=== PATIENT | female | born 1980 | race Caucasian/White ===

== ENCOUNTER 2017-03-31 11:42 | Inpatient (IN) | payer BC ==
[2017-03-31] MEDS ORDERED: BUTORPHANOL TARTRATE 1 MG/ML VIAL IVPB ONE (12:15)
[2017-03-31] MEDS ORDERED: PROMETHAZINE HCL 25 MG/1 ML VIAL IVPB ONE (12:15)
[2017-03-31 12:25] LABS: BASOPHIL 0.3 % (0-2.0); EOSINOPHIL 0.3 % (0-4.5); MCH 28.7 pg (25.7-33.7); MCHC 33.6 g/dl (32.0-36.0); MEAN CELL VOLUME 85.4 fl (80-96); MEAN PLT VOLUME 9.8 fl (7.5-11.1); NEUTROPHILS 76.6 % (42.8-82.8); PLATELET COUNT 145 K/MM3 (134-434); RDW 13.5 % (11.6-15.6); WHITE BLOOD COUNT 9.1 K/mm3 (4.0-10.0)
[2017-03-31 12:31] VITALS: BMI 26.6
[2017-03-31 12:38] LABS: ANION GAP 10 (8-16); CO2 26 mmol/L (21-32); CREATININE 0.7 mg/dL (0.55-1.02); GLUCOSE,RANDOM 82 mg/dL (74-106)
[2017-03-31 13:02] LABS: INR 0.96 (0.82-1.09); PROTHROMBIN TIME (PATIENT) 10.6 SEC (9.98-11.88)
[2017-03-31 13:05] LABS: ACTIVATED PTT 26.8 SECONDS (26.9-34.4)
[2017-03-31] MEDS ORDERED: DEXTROSE 5%-LACTATED RINGERS 1,000 ML IV SCH (14:15)
--- NOTE | 2017-03-31 14:18 | HP ---
Past Medical History - Primary Care Physician PCP:: Art Gibbs - Admission Chief Complaint: 36yo P1 at EGA 40w4d admitted with spontaneous labor. History of Present Illness: AMA GBS neg Recent US c/w polyhydramnios and BPP 04/10 History Source: Patient, Medical Record Limitations to Obtaining History: No Limitations - Past Medical History EXPERIENCE SPECIALIST: No: Alzheimer's, CVA, Dementia, Migraine, Multiple Sclerosis, Peripheral Neuropathy, Parkinson's, Seizure, Syncope, TIA, Vertigo, Other Cardiovascular: No: AFIB, Aneurysm, Aortic Insufficiency, Aortic Stenosis, CAD, CHF, Deep Vein Thrombosis, HTN, Hyperlipdemia, PA, Mitral Insufficiency, Mitral Stenosis, Murmur, Pulmonary Hypertension, Other Pulmonary: No: Asthma, Bronchitis, Cancer, COPD, O2 Dependent, Pneumonia, Previously Intubated, Pulmonary Embolus, Pulmonary Fibrosis, Sleep Apnea, Other Gastrointestinal: No: Ascites, Cancer, Constipation, Crohn's Disease, Diverticulitis, Diverticulosis, Esophageal Varices, Gastritis, GERD, GI Bleed, Hemorrhoids, Hiatal Hernia, Inflamatory Bowel Disease, Irritable Bowel Disease, Pancreatitis, Peptic Ulcer Disease, Ulcerative Colitis, Other Hepatobiliary: No: Cirrhosis, Cholelithiasis, Cholecystitis, Choledocholithiasis , Hepatitis A, Hepatitis B, Hepatitis C, Other Renal/: No: Renal Failure, Renal Inusuff, BPH, Cancer, Hematuria, Hemodialysis , Neurogenic Bladder, Renal Calculi, UTI, Other Reproductive: No: Ectopic , Endometriosis, Fibroids, PID, Polycystic Ovary Syndrome, Postmenopausal, Other ...: 2 ...Para: 1 () ...Term: 1 ...EDC by Brittani: 03/27/17 Heme/Onc: No: Anemia, B12 Deficiency, Bleeding Disorder, Cancer, Current Chemotherapy, Current Radiation Therapy, Hemochromatosis, Hypercoaguable State, Myeloproliferative Synd, Sickle Cell Disease, Sickle Cell Trait, Thrombocytopenia, Other Infectious Disease: No: AIDS, C-Diff, Herpes Zoster, HIV, MRSA, STD's, Tuberculosis, VREF, Other Psych: No: Addictions, Anxiety, Bipolar, Depression, Panic, Psychosis, Schizophrenia, Other Musculoskeletal: No: Bursitis, Chronic low back pain, Hemiparesis, Hemiplegia, Osteoarthritis, Paraplegia, Other Rheumatology: No: Fibromyalgia, Gout, Lupus, Rheumatoid Arthritis, Sarcoidosis, Vasculitis, Other ENT: No: Allergic Rhinitis, Sinusitis, Other Endocrine: No: Ward's Disease, Trina's Disease, Diabetes Insipidus, Diabetes Mellitus, Hyperparathyroidism, Hyperthyroidism, Hypothyroidism, Osteopenia, SIADH, Other Dermatology: No: Basal Cell, Cellulitis, Eczema, Melanoma, Psoriasis, Squamous Cell, Other - Past Surgical History Past Surgical History: Yes: None Hx Myomectomy: No Hx Transabdominal Cerclage: No - Smoking History Smoking history: Never smoked Have you smoked in the past 12 months: No - Alcohol/Substance Use Hx Alcohol Use: No History of Substance Use: reports: None - Social History Usual Living Arrangement: Yes: With Spouse, With Child ADL: Independent Occupation: Homemaker History of Recent Travel: No Home Medications - Allergies Allergies/Adverse Reactions: Allergies Allergy/AdvReac Type Severity Reaction Status Date / Time No Known Allergies Allergy Verified 04/12/14 00:05 - Home Medications Home Medications: Ambulatory Orders RX: Vitamins (Sjr) - 1 tab PO DAILY MDD 1 04/11/14 Family Disease History - Family Disease History Family Disease History: Other: Mother (osteoporosis) Review of Systems - Review of Systems Constitutional: reports: Other (labor) Eyes: reports: No Symptoms HENT: reports: No Symptoms Neck: reports: No Symptoms Cardiovascular: reports: No Symptoms Respiratory: reports: No Symptoms Gastrointestinal: reports: No Symptoms Genitourinary: reports: No Symptoms Breasts: reports: No Symptoms Reported Musculoskeletal: reports: No Symptoms Integumentary: reports: No Symptoms Neurological: reports: No Symptoms Endocrine: reports: No Symptoms Hematology/Lymphatic: reports: No Symptoms Psychiatric: reports: No Symptoms Pain Intensity: 8 Physical Exam - Maternity Vital Signs: Vital Signs Temperature 99.1 F 03/31/17 14:00 Pulse Rate 68 03/31/17 14:00 Respiratory Rate 20 03/31/17 14:00 Blood Pressure 113/78 03/31/17 14:00 O2 Sat by Pulse Oximetry (%) Constitutional: Yes: Well Nourished, No Distress, Calm Eyes: Yes: WNL, Conjunctiva Clear HENT: Yes: WNL, Atraumatic, Normocephalic Neck: Yes: WNL, Supple, Trachea Midline Cardiovascular: Yes: WNL, Regular Rate and Rhythm Lungs: Clear to auscultation, Normal air movement Breast(s): Yes: WNL - Abdominal Exam/OB Fundal Height: 40 Number of Fetuses: Single Presentation: Vertex Contractions: Yes Regularity: Regular (q2min) Intensity: Moderate Monitor Mode: External Heart Rate (range): 130 Heart Rate Location: Midline Category: I (Now s/p Stadol and Phenergan) Accelerations: None (Now s/p Stadol and Phenergan) Decelerations: None - Vaginal Exam/OB Vaginal Bleediing: No Speculum Exam: No Dilatation (cm): 7 Effacement (%): 70 Amniotic Membrane Status: Intact Presentation: Vertex/Position Station: -1 - Physical Exam Musculoskeletal: Yes: WNL Extremities: Yes: WNL Edema: No Edema: LLE: Trace, RLE: Trace Integumentary: Yes: WNL Deep Tendon Reflex Grade: Normal +2 ...Motor Strength: WNL Psychiatric: Yes: WNL, Alert, Oriented - Labs Lab Results: CBC, BMP 03/31/17 11:55 03/31/17 11:55 Hemorrhage Risk Assessment - Risk Factors Medium Risk Factors: Yes: None High Risk Factors: Yes: None Risk Score: 1 Risk Level: Medium Risk Imaging - Results Ultrasound: Report Reviewed Assessment/Plan 36yo P1 with at EGA 40w4d admitted with active spontaneous labor. The fetus with Category I tracing and requires no intervention. Labor is in active phase. Plan to monitor labor progress. Anticipate .
--- NOTE | 2017-03-31 16:17 | PN ---
Ante-Partal Exam - Subjective Subjective: Pt is pushing on and off, and has a lot of back labor/pain. She is also resting w/o pushing. She was laboring in standing position w/o pushing, as well. Multiple losses of contact on the tracing noted. Vital Signs: Vital Signs Temperature 99.1 F 03/31/17 14:00 Pulse Rate 68 03/31/17 15:00 Respiratory Rate 20 03/31/17 15:00 Blood Pressure 120/76 03/31/17 15:00 O2 Sat by Pulse Oximetry (%) Bleeding: No Headache: No Visual changes: No Right upper quadrant pain: No Pain (scale 1-10): 10 - Contractions Contractions: Yes Regularity: Regular (pontaneous, q 2min) Intensity: Mod/Strong Monitor Mode: External - Exam during Labor Heart Rate: 140 Variability: Moderate Heart Rate Location: Midline Category: II Monitor Accelerations: Absent (moderate variability) Monitor Decelerations: Variable Exam: Vaginal Dilatation (cm): 10 Effacement (%): 100 Amniotic Membrane Status: Ruptured Amniotic Fluid: Clear Presentation: Vertex Station: +2 Remarks: Pushing since ~3:35pm, adequate gynecoid pelvimetry. The fetus in OP presentation - Intrapartum Hemorrhage Risk Medium Risk Factors: None High Risk Factors: None Risk Score: 0 Risk Level: Low Risk - Assessment/Plan Assessment/Plan: 36yo P1 with second stage of labor. Pt is c/o "back labor" and fetus is in OP presentation. The pt is trying various labor positions and also rests w/o pushing due to discomfort. Fetus does not require intervention at this time. Plan to allow pt to labor and any position with the most comfort. Anticipate .
[2017-03-31] MEDS: D5W-LR W/ 20 UNITS OXYTOCIN 1,000 ML IV SCH (17:25)
[2017-03-31 17:44] LABS: ARTERIAL BLD GAS O2 SATURATION 58.2 % (90-98.9); ARTERIAL BLOOD GAS BASE EXCESS -1.2 meq/l (-2-2); ARTERIAL BLOOD GAS PO2 27.9 mmHg (80-100)
[2017-03-31 17:46] LABS: ARTERIAL BLD GAS O2 SATURATION 63.8 % (90-98.9); ARTERIAL BLOOD GAS HCO3 23.4 meq/L (22-26); ARTERIAL BLOOD GAS PO2 29.6 mmHg (80-100); ARTERIAL BLOOD GAS pH 7.31 (7.35-7.45); PT. ON O2? NO
[2017-03-31 17:47] LABS: ARTERIAL BLOOD GAS pH 7.34 (7.35-7.45); PT. ON O2? NO
[2017-03-31] MEDS ORDERED: TUBERCULIN PPD 5 TU/0.1ML SYRINGE (IN PATIENT USE ONLY) ID ONE (18:00)
--- NOTE | 2017-03-31 18:01 | PROC ---
Obstetrical Vaccum Device - Doc. Following Use of Vaccum Device Indications for use: NRFHR, Maternal Exhaustion, Failure to Descend Risks and Benefits Explained: Yes Consent on Chart: Yes Dilation (0-10): 10 Station: 2 Molding: No Position: OA Caput: Yes Proper placement of cup confirmed: Yes Number of pulls: 2 Number of pop-offs: 0 Duration of time cup on head (min): 0 (30 seconds) Maximum pressure attained: 45 (cm Hg) Total time cup near/at maximum pressure (min): 0 (30 seconds) Reduction of pressure between contractions: Yes Outcome: Excellent delivery Appearance of head on delivery: [place] Risk Management Manager present during vacuum extraction: Yes Risk Management Manager & nursery staff notified of vacuum extraction: Yes
[2017-03-31] MEDS ORDERED: BENZOCAINE 28 GM HEMORRHOIDAL OINTMENT TP PRN (18:05)
[2017-03-31] MEDS ORDERED: BENZOCAINE 20% 57 GM BOTTLE TP PRN (18:05)
[2017-03-31] MEDS ORDERED: WITCH HAZEL 50% (TUCKS) 40 PAD/JAR PAD TP PRN (18:05)
[2017-03-31] MEDS ORDERED: BISACODYL 10 MG SUPP.RECT RC PRN (18:05)
[2017-03-31] MEDS ORDERED: METHYLERGONOVINE MALEATE 0.2 MG/1 ML AMP IM PRN (18:05)
--- NOTE | 2017-03-31 18:16 | PN ---
Delivery - Delivery Vaginal Delivery: No Problems, Vacuum Assist Type of Anesthesia: Local Episiotomy/Laceration: Midline (laceration), Left Mediolateral (laceration), Right Mediolateral (laceration), 2nd degree (laceration) EBL (cc): 300 Delivery, Single - Stages of Labor Date 1st Stage Initiatied: 03/31/17 Time 1st Stage Initiated: 06:00 Date 2nd Stage Initiated: 03/31/17 Time 2nd Stage Initiated: 15:35 Date of Delivery: 03/31/17 Time of Delivery: 17:20 Date Placenta Delivered: 03/31/17 Time Placenta Delivered: 17:25 Placenta: Yes: Spontaneous, Normal Configuration - Condition of Infant Ink Technician/Advertising Display Rotator Present: Yes Name: Eliot Richmond Gender: Male Weight: 3.572 kg Position: Right, OA Total Hours ROM (Hrs/Mins): 2/45 - 1 Minute Total Score: 9 5 Minutes Total Score: 9 - [place] Feeding Plan Initial Plan: Elected not to breastfeed exclusively throughout hospitalization Benefits of Exclusively reinforced: Yes
[2017-03-31] MEDS: ACETAMINOPHEN 325 MG TABLET (FP) PO PRN ×2 (20:00→23:20)
[2017-03-31] MEDS: IBUPROFEN 600 MG TABLET (FP) PO PRN ×2 (20:00→23:20)
[2017-04-01] MEDS: D5W-LR W/ 20 UNITS OXYTOCIN 1,000 ML IV SCH (01:55)
[2017-04-01 08:55] LABS: BASOPHIL 0.2 % (0-2.0); EOSINOPHIL 0.1 % (0-4.5); MCH 28.6 pg (25.7-33.7); MCHC 33.2 g/dl (32.0-36.0); MEAN CELL VOLUME 86.1 fl (80-96); MEAN PLT VOLUME 9.6 fl (7.5-11.1); NEUTROPHILS 81.8 % (42.8-82.8); PLATELET COUNT 142 K/MM3 (134-434); RDW 13.5 % (11.6-15.6); WHITE BLOOD COUNT 12.1 K/mm3 (4.0-10.0)
[2017-04-01] MEDS: PRENATAL VITAMINS W/ FOLIC ACID TABLET (FP) PO SCH (09:12)
[2017-04-01] MEDS: IBUPROFEN 600 MG TABLET (FP) PO PRN ×2 (09:12→20:17)
[2017-04-01] MEDS: ACETAMINOPHEN 325 MG TABLET (FP) PO PRN ×2 (09:13→20:17)
--- NOTE | 2017-04-01 11:18 | PN ---
Post Progress Note - Subjective Subjective: No complaints Post Day: 1 Type of Delivery: Vacuum Assist Vag Del Vital Signs: Vital Signs Temperature 98.8 F 04/01/17 06:00 Pulse Rate 74 04/01/17 06:00 Respiratory Rate 20 04/01/17 06:00 Blood Pressure 121/74 04/01/17 06:00 O2 Sat by Pulse Oximetry (%) Breast Exam: Yes: Soft Uterus: Yes: Fundus Firm, Fundus below umbilicus, Non-tender Abdomen/GI: Yes: Abdomen soft, Passing flatus, Tolerating PO Lochia: Yes: Rubra Lochia, amount: Small Extremities: Yes: Calves non-tender Perineum: Yes: Intact Activity: Ambulating - Labs Labs: CBC WBC 12.1 K/mm3 (4.0-10.0) H D 04/01/17 08:00 RBC 3.24 M/mm3 (3.60-5.2) L 04/01/17 08:00 Hgb 9.3 GM/dL (10.7-15.3) L D 04/01/17 08:00 Hct 27.9 % (32.4-45.2) L D 04/01/17 08:00 MCV 86.1 fl (80-96) 04/01/17 08:00 MCH 28.6 pg (25.7-33.7) 04/01/17 08:00 MCHC 33.2 g/dl (32.0-36.0) 04/01/17 08:00 RDW 13.5 % (11.6-15.6) 04/01/17 08:00 Plt Count 142 K/MM3 (134-434) 04/01/17 08:00 MPV 9.6 fl (7.5-11.1) 04/01/17 08:00 Neutrophils % 81.8 % (42.8-82.8) 04/01/17 08:00 Lymphocytes % 12.0 % (8-40) D 04/01/17 08:00 Monocytes % 5.9 % (3.8-10.2) 04/01/17 08:00 Eosinophils % 0.1 % (0-4.5) 04/01/17 08:00 Basophils % 0.2 % (0-2.0) 04/01/17 08:00 Assessment/Plan 36yo P2 s/p VAVD, doing well stable, afebrile. care instructions reviewed. Continue routine care. Ambulation encouraged Plan to d/c home if stable tomorrow Discharge instruction reviewed..
--- NOTE | 2017-04-01 11:21 | DS ---
Physical Exam-HEEL SEWER Vital Signs: Vital Signs Temperature 98.8 F 04/01/17 06:00 Pulse Rate 74 04/01/17 06:00 Respiratory Rate 20 04/01/17 06:00 Blood Pressure 121/74 04/01/17 06:00 O2 Sat by Pulse Oximetry (%) Constitutional: Yes: Well Nourished, No Distress, Calm Eyes: Yes: WNL, Conjunctiva Clear, EOM Intact HENT: Yes: WNL, Atraumatic, Normocephalic Neck: Yes: WNL, Supple, Trachea Midline Cardiovascular: Yes: WNL, Regular Rate and Rhythm Respiratory: Yes: WNL, Regular, CTA Bilaterally Gastrointestinal: Yes: WNL, Normal Bowel Sounds, Soft ...Rectal Exam: Yes: Deferred Renal/: Yes: WNL Pelvis: Yes: WNL Internal Exam Deferred: Yes ....Post : Yes: Uterus firm, Uterus non-tender, Slight lochia rubra Breast(s): Yes: WNL Musculoskeletal: Yes: WNL Extremities: Yes: WNL Edema: Yes Edema: LLE: Trace, RLE: Trace Integumentary: Yes: WNL Neurological: Yes: WNL, Alert, Oriented ...Motor Strength: WNL Psychiatric: Yes: WNL, Alert, Oriented Labs: CBC, BMP 04/01/17 08:00 03/31/17 11:55 Delivery - Delivery Vaginal Delivery: No Problems, Vacuum Assist Type of Anesthesia: Local Episiotomy/Laceration: Midline (laceration), Left Mediolateral (laceration), Right Mediolateral (laceration), 2nd degree (laceration) EBL (cc): 300 Delivery, Single - Stages of Labor Date 1st Stage Initiatied: 03/31/17 Time 1st Stage Initiated: 06:00 Date 2nd Stage Initiated: 03/31/17 Time 2nd Stage Initiated: 15:35 Date of Delivery: 03/31/17 Time of Delivery: 17:20 Date Placenta Delivered: 03/31/17 Time Placenta Delivered: 17:25 Placenta: Yes: Spontaneous, Normal Configuration - Condition of Infant Career Specialist/Medical Writer Present: Yes Name: Eliot Richmond Infant Gender: Male Weight: 3.572 kg Position: Right, OA Total Hours ROM (Hrs/Mins): 2/45 - 1 Minute Total Score: 9 5 Minutes Total Score: 9 - [place] Feeding Plan Initial Plan: Elected not to breastfeed exclusively throughout hospitalization Benefits of Exclusively reinforced: Yes Discharge Summary Reason For Visit: LABOR ADMIT Spontaneous labor at term Procedures: Principal: VAVD Other Procedures: Repair of 2nd degree perineal laceration Hospital Course: Normal recovery Condition: Good - Instructions Diet, Activity, Other Instructions: Physical activity Resume your normal everyday activity as tolerated no heavy lifting or exercise until seen by your surgeon. You may walk unlimited tulio of and climb stairs. You may resume driving the car when you feel safe and comfortable behind the wheel. No sexual activity as instructed. Wound care If you have a bandage, leave it on, and keep dry for 48-72 hours. After that time discard the outer bandage. If they are tapes on the skin under the out of bandage leave them in place. They will peel off in the next 7 to 10 days. Do Not Peel them off. You may shower the day after surgery. If there are tapes present on the skin, you may shower over them. Diet There are no dietary restrictions. Eat healthy, high-fiber foods. Drink 6 to 8 glasses of liquid each day. This will assist in keeping your bowels are regular. Pain management You may take Tylenol or acetaminophen or Ibuprofen (for example, Motrin, Advil etc.) from my pain prescription medication is ordered should be taken as prescribed for moderate to severe pain. Call MD for any of the following: Severe pain not relieved by medication Fever of 101 or higher Excessive bleeding or drainage on dressing Inability to urinate Referrals: Art Gibbs MD [Staff Physician] - Disposition: HOME - Home Medications Comprehensive Discharge Medication List: Ambulatory Orders Vitamins (Sjr) - 1 tab PO DAILY MDD 1 04/11/14
[2017-04-01 16:02] VITALS: TEMP 98.2
[2017-04-01] MEDS ORDERED: SENNOSIDES/DOCUSATE COMBO (SENNA PLUS) TABLET (UD) PO PRN (22:00)
[2017-04-02] MEDS: PRENATAL VITAMINS W/ FOLIC ACID TABLET (FP) PO SCH (09:36)
[2017-04-02 09:46] VITALS: BP 112/78; PULSE 82
--- NOTE | 2017-04-02 11:42 | PN ---
Post Progress Note - Subjective Subjective: No complaints Post Day: 2 Type of Delivery: Vacuum Assist Vag Del Vital Signs: Vital Signs Temperature 98.2 F 04/02/17 09:44 Pulse Rate 82 04/02/17 09:44 Respiratory Rate 18 04/02/17 09:44 Blood Pressure 112/78 04/02/17 09:44 O2 Sat by Pulse Oximetry (%) Breast Exam: Yes: Soft Uterus: Yes: Fundus Firm, Fundus below umbilicus, Non-tender Abdomen/GI: Yes: Abdomen soft, Passing flatus, Tolerating PO Lochia: Yes: Rubra Lochia, amount: Small Extremities: Yes: Edema Perineum: Yes: Intact, Laceration Activity: Ambulating - Labs Labs: CBC WBC 12.1 K/mm3 (4.0-10.0) H D 04/01/17 08:00 RBC 3.24 M/mm3 (3.60-5.2) L 04/01/17 08:00 Hgb 9.3 GM/dL (10.7-15.3) L D 04/01/17 08:00 Hct 27.9 % (32.4-45.2) L D 04/01/17 08:00 MCV 86.1 fl (80-96) 04/01/17 08:00 MCH 28.6 pg (25.7-33.7) 04/01/17 08:00 MCHC 33.2 g/dl (32.0-36.0) 04/01/17 08:00 RDW 13.5 % (11.6-15.6) 04/01/17 08:00 Plt Count 142 K/MM3 (134-434) 04/01/17 08:00 MPV 9.6 fl (7.5-11.1) 04/01/17 08:00 Neutrophils % 81.8 % (42.8-82.8) 04/01/17 08:00 Lymphocytes % 12.0 % (8-40) D 04/01/17 08:00 Monocytes % 5.9 % (3.8-10.2) 04/01/17 08:00 Eosinophils % 0.1 % (0-4.5) 04/01/17 08:00 Basophils % 0.2 % (0-2.0) 04/01/17 08:00 Assessment/Plan 36yo P2 s/p VAVD, doing well stable, afebrile. care instructions reviewed. Continue routine care. Ambulation encouraged Plan to d/c home today Discharge instruction reviewed..
== END 2017-04-02 13:00 | disposition home or self-care (01) | DRG 775 ==
LOC: JDEL 11:42 → JLDR 11:50 → J3W 21:00
PROVIDERS: ADMIT Obstetrics & Gynecology; ATTEND Obstetrics & Gynecology
PROC: 10D07Z6 Extraction of Products of Conception, Vacuum, Via Natural or Artificial Opening (ICD-10-PCS; principal; 2017-03-31)
PROC: 0KQM0ZZ Repair Perineum Muscle, Open Approach (ICD-10-PCS; 2017-03-31)
PROC: 0W8NXZZ Division of Female Perineum, External Approach (ICD-10-PCS; 2017-03-31)
DX: O70.1 Second degree perineal laceration during delivery (principal); Z37.0 Single live birth; O09.523 Supervision of elderly multigravida, third trimester; Z3A.40 40 weeks gestation of pregnancy
CPT/HCPCS: 36415; 36600; 59409; 80048; 82803; 85025; 85610; 85730; 86593; 86850; 86900; 86901